=== PATIENT | female | born 2000 | race Caucasian/White ===

== ENCOUNTER → 2024-09-23 07:37 | Outpatient (REF) | payer BC, SELFPAY | LOC: MRI 07:37 | PROVIDERS: ATTENDING PHYSICIAN Internal Medicine | DX: K86.2 Cyst of pancreas (principal) | CPT/HCPCS: 74183; A9575 ==

== ENCOUNTER 2025-03-22 10:53 | Emergency (ER) | payer BC, SELFPAY ==
[2025-03-22] VITALS (7 sets, daily range): BP systolic 90–118; BP diastolic 56–81
[2025-03-22] MEDS: ZOFRAN 4 MG IV (11:19)
[2025-03-22 11:30] LABS: Hematocrit 41.1 % (37.0-47.0); Hemoglobin 14.4 g/dL (12.0-16.0); Mean Corp Hgb Conc. 35.0 g/dL (33.0-37.0); Mean Corpuscular Volume 88.0 fL (81.0-99.0); Nucleated Red Blood Cells % 0 %; Platelet Count 295 10^3/uL (130-400); Red Cell Dist. Width 12.4 % (11.5-14.5)
[2025-03-22] MEDS: NSS 1000 IV ×2 (11:40→12:41)
[2025-03-22 11:44] LABS: ALT (SGPT) 10 U/L (0-35); AST (SGOT) 17 U/L (14-36); Albumin 4.7 g/dl (3.5-5.0); Alkaline Phosphatase 101 U/L (38-126); Blood Urea Nitrogen 7 mg/dl (7-17); Calcium 9.5 mg/dl (8.4-10.2); Carbon Dioxide 24 mmol/L (22-30); Chloride 104 mmol/L (98-107); Glucose 90 mg/dl (70-99); Lipase 114 U/L (23-300); Potassium 3.9 mmol/L (3.5-5.1); Sodium 139 mmol/L (135-145); Total Protein 7.9 g/dl (6.3-8.2); eGFR > 60.00
[2025-03-22 13:02] LABS: HCG, Serum Qualitative Screen Negative
--- NOTE | 2025-03-22 13:10 | ED.GENMED ---
History of Present Illness
General
Chief Complaint: Abdominal Symptoms
Source: patient
Time Seen by Provider: 03/22/25 11:38
History of Present Illness
History of Present Illness:
24-year-old female with past medical history of pancreatitis and recent bowel obstruction presenting back to the emergency department for evaluation of nausea and vomiting which began on Friday, by the end of the day seem to have resolved, yesterday
had a few episodes of diarrhea described to be loose frequent stools but no further vomiting, had some pizza last night for dinner and then awoke this morning again with the nausea and vomiting. Patient was concerned about recurring bowel
obstruction which is why she presented to the ER for further evaluation. Patient did attempt an ODT Zofran prior to arrival but states shortly after taking this medicine she vomited again. She denies any fevers, chills, rigors. She does note some
mild abdominal cramping accompanied with her current symptoms. She does note that her significant other and her boyfriend's son had 1 episode of vomiting each at the end of last week but no further GI related symptoms.
Past History
Past History
ED Past Medical History: Other (Pancreatitis, migraines)
ED Past Surgical History: Appendectomy and Cholecystectomy
Social History
Tobacco: Non-smoker
Alcohol: None
Drug: None
Personal: Partner
Living: with family
Employment: Employed
Review of Systems
Review of Systems
All Other Systems: ROS reviewed and negative except as documented in HPI and ROS
Phy Exam
Physical Exam
Physical Exam:
GENERAL: Alert , in no apparent distress
EYE: clear conjunctiva b/l
HEAD: NCAT
ENT: o/p clr, mmm.
CARDIAC: Regular rate and rhythm .
LUNGS: Clear breath sounds bilaterally, no acute respiratory distress, no wheezes/rales/rhonchi
ABDOMEN: Soft, without focal tenderness, no r/g, no cvat
NEUROLOGICAL: Alert and oriented
SKIN: Warm and dry, skin intact.
MUSCULOSKELETAL: No edema, well perfused.
PSYCH: Normal and appropriate interaction.
Scores
Heart Failure Risk
Heart Failure Risk Score: Not Applicable
Heart Score for Chest Pain Patients
STEMI patient?: Not applicable
Withdrawal Assessment of Alcohol
Withdrawal Assessment Completed?: Not applicable
Course
Orders/Labs/Results
Orders:
Orders
03/22/25 11:12
Complete Blood Count/With Diff Urgent
Comprehensive Metabolic Panel Urgent
HCG, Serum Qualitative Screen Urgent
Comment: ADD ON
Lipase Urgent
03/22/25 11:18
Ondansetron Injectable [Zofran] 4 mg .ROUTE .STK-MED ONE
03/22/25 11:19
Ondansetron Injectable [Zofran] 4 mg IV NOW STA
03/22/25 11:38
0.9% Sodium Chloride 1000 ml [Nss] 1,000 ml IV BOLUS
CR Abdomen - 1 View Urgent
Comment:
Reason For Exam: possible obstruction, N/V
03/22/25 12:08
Add On- LAB Urgent
Tests Added?: hcg qual
03/22/25 12:28
0.9% Sodium Chloride 1000 ml [Nss] 1,000 ml IV BOLUS
Abnormal Lab Results
03/22/25
11:12
WBC 17.4 H 10^3/uL
(4.8-10.8)
Abs Immat Gran (auto) 0.1 H 10^3/uL
(0-0.05)
Absolute Neuts (auto) 15.0 H 10^3/uL
(1.4-6.5)
Absolute Monos (auto) 1.0 H 10^3/uL
(0.1-0.6)
Neutrophils % 86.0 H %
(42.2-75.2)
Lymphocytes % 6.7 L %
(20.5-51.1)
03/22/25 11:12
03/22/25 11:12
Vital Signs
Initial and Last Documented VS:
Initial Vital Signs
Temp Pulse Resp BP Pulse Ox
97.8 F 105 16 113/81 98
03/22/25 10:56 03/22/25 10:56 03/22/25 10:56 03/22/25 10:56 03/22/25 10:56
Last Documented Vital Signs
Temp Pulse Resp BP Pulse Ox
97.8 F 105 18 108/66 100
03/22/25 10:56 03/22/25 16:06 03/22/25 14:41 03/22/25 16:00 03/22/25 16:06
MDM/Problems Addressed
Differential Diagnosis Includes:
Recurring small bowel obstruction
Gastroenteritis
GERD/gastritis
pancreatitis
colitis
Dehydration
Electrolyte imbalance
MDM/Problems Addressed:
24-year-old female presenting to the ER for evaluation of nausea vomiting and diarrhea with symptoms waxing and waning since Friday, recent admission here for small bowel obstruction thought to be related to adhesions from previous abdominal
surgeries. Patient is in no acute distress and otherwise hemodynamically stable. Treated with Zofran and fluids. Will order x-ray to further assess. Disposition pending
Chronic conditions affecting care: Previous abdomnial surgery
Acute Exacerbation and/or Progression of Chronic Illness: Previous abdomnial surgery
*Radiology
Radiology exam reviewed: preliminary read by ED provider ( normal bowel gas pattern)
*Pulse Oximetry
SaO2: 98
Oxygen Mode of Delivery: Room air
Patient hypoxic: no
*Critical Care Note
Total Time (30-74mins, 75-104mins- exclusive of procedures): Not Applicable
Data Reviewed
Review of Other/Old Records Reveals: Labs, Records and Radiology Studies
Source: patient and records
Comment
Comment:
X-ray is unremarkable for any signs of bowel obstruction however patient stating that her symptoms are still reminiscent of the previous bowel obstructions so will obtain CT scan to rule this out.
Patient Management
Escalation/DeEscalation of care consider admission/obs:
On multiple reevaluations patient reports feeling significant relief of symptoms. Unfortunately due to unforeseen circumstances there is currently only 1 CT scan operating in the ER at this time, I updated patient that our CT scanners are running
behind and that I am unsure as to when she would be going for a CT scan. Patient states due to the significant improvement of her symptoms that she ultimately wishes to now forego CT imaging and would prefer to just be discharged home. I
encouraged patient to continue a BRAT diet over the next 24 to 48 hours and then slowly reintroduce her normal diet. We discussed return precautions to the ER. A new prescription for Zofran was sent to patient's pharmacy. Stable for discharge
home.
ED Attending Note
-
Portions of this chart may have been created with voice recognition software.� Occasional wrong word or��sound alike� substitutions may have occurred due to the inherent limitations of voice recognition software.
Discharge Plan
Departure
Patient Disposition: Home (Routine Discharge)
Date of Disposition: 03/22/25
Time of Disposition: 16:20
Patient with high blood pressure during this ER visit?: No
Discharge Problem:
Nausea and vomiting, Diarrhea
Instructions: Nausea and Vomiting, Adult (DC)
Prescriptions:
New
ondansetron 4 mg tablet,disintegrating
4 mg PO TIDPRN PRN (Reason: nausea/vomiting) Qty: 10 0RF
Referrals:
Domonique Escudero MD [Family Provider]
Stand Alone Forms: Return to Work
Interventions
Interventions:
*Risk Screen - Suicide Last Done: 03/22/25 10:58
*General Assessment Last Done: 03/22/25 11:14
*Neglect/Abuse Screening Last Done: 03/22/25 10:58
*ED- Fall Risk Assessment Last Done: 03/22/25 11:14
*ED COVID-19 Vaccine History Last Done: 03/22/25 10:59
*ED Influenza Vaccine History Last Done: 03/22/25 10:59
TM-Wfzqax-Ktjkkwriuy Assessment Last Done: 03/22/25 11:14
Discharge Date and Time
Print Language: MACEDONIAN
== END 2025-03-22 16:44 | disposition home or self-care (01) ==
LOC: EMR 10:53
PROVIDERS: EMERGENCY PHYSICIAN Emergency Medicine; FAMILY PHYSICIAN Family Medicine
DX: R11.2 Nausea with vomiting, unspecified (principal); R19.7 Diarrhea, unspecified; Z87.19 Personal history of other diseases of the digestive system
CPT/HCPCS: 99284; 96374; 96361; 74018; 80053; 83690; 84703; 85025

== ENCOUNTER → 2025-04-01 08:55 | Outpatient (REF) | payer BC, SELFPAY | LOC: RAD 08:55 | PROVIDERS: ATTENDING PHYSICIAN Internal Medicine; FAMILY PHYSICIAN Family Medicine | DX: K56.609 Unspecified intestinal obstruction, unspecified as to partial versus complete obstruction (principal) | CPT/HCPCS: 74177; Q9967 ==